=== PATIENT | female | born 1965 | race Caucasian/White ===

== ENCOUNTER → 2020-05-15 | Outpatient (CLI) | payer BC | END | disposition home or self-care (01) | LOC: LABWHC1 14:34 | PROVIDERS: ATTEND Family Medicine | DX: Z20.828 Contact with and (suspected) exposure to other viral communicable diseases (principal) | CPT/HCPCS: U0003; C9803 ==

== ENCOUNTER 2020-07-06 08:34 | Emergency (ER) | payer BC ==
[2020-07-06 08:41] VITALS: RESP 18
[2020-07-06] MEDS ORDERED: ALBUTEROL HFA INHALER INHALATION STA (08:57)
[2020-07-06] MEDS ORDERED: SODIUM CHLORIDE 0.9% 1,000 ML IV STA (08:58)
--- NOTE | 2020-07-06 09:01 | ED ---
General Adult HPI - General Chief complaint: Upper Respiratory Infection Stated complaint: cough/fatigue/fever Time Seen by Provider: 07/06/20 08:45 Source: patient, RN notes reviewed Mode of arrival: ambulatory Limitations: no limitations - History of Present Illness Initial comments: Patient is a pleasant 54-year-old female presenting to the emergency department with not feeling well for the past 10 days. Patient does have a lot of fatigue. Patient does have cough. No dyspnea. Patient has had fevers, none in the last 24 hours. Patient was exposed to Sanchez virus. No nausea vomiting. - Related Data Previous Rx's Medication Instructions Recorded Albuterol Sulfate [Albuterol 2 puff INHALATION Q6H PRN #1 07/06/20 Sulfate Hfa] inhaler Azithromycin [Zithromax Z-pack (6 250 mg PO DIRECTED #6 tab 07/06/20 tabs)] Allergies Allergy/AdvReac Type Severity Reaction Status Date / Time No Known Allergies Allergy Verified 07/06/20 08:36 Review of Systems ROS Statement: Those systems with pertinent positive or pertinent negative responses have been documented in the HPI. ROS Other: All systems not noted in ROS Statement are negative. Constitutional: Reports: as per HPI, fever, chills Eyes: Denies: eye pain ENT: Denies: ear pain Respiratory: Reports: cough. Denies: dyspnea Cardiovascular: Denies: chest pain Endocrine: Reports: fatigue Gastrointestinal: Denies: abdominal pain, nausea, vomiting Genitourinary: Denies: dysuria Musculoskeletal: Denies: back pain Skin: Denies: lesions Neurological: Denies: weakness Past Medical History Past Medical History: Thyroid Disorder History of Any Multi-Drug Resistant Organisms: None Reported Past Surgical History: Hernia Repair Past Psychological History: No Psychological Hx Reported Smoking Status: Never smoker Past Alcohol Use History: None Reported Past Drug Use History: None Reported General Exam Limitations: no limitations General appearance: alert, in no apparent distress Head exam: Present: normocephalic Eye exam: Present: normal appearance Neck exam: Present: normal inspection Respiratory exam: Present: normal lung sounds bilaterally Cardiovascular Exam: Present: regular rate, normal rhythm GI/Abdominal exam: Present: soft. Absent: tenderness Extremities exam: Present: normal inspection. Absent: pedal edema, calf tenderness Neurological exam: Present: alert Psychiatric exam: Present: normal affect, normal mood Skin exam: Present: normal color Course Vital Signs 07/06/20 07/06/20 08:36 08:50 Temperature 97.9 F Pulse Rate 97 Respiratory 18 18 Rate Blood Pressure 107/69 O2 Sat by Pulse 97 Oximetry EKG Findings - EKG Comments: EKG Findings:: Normal sinus rhythm 87. IA 1:30. QRS 84. QT 366. QTc 440. Normal axis. Normal QRS. No acute ST change. Medical Decision Making - Medical Decision Making Patient evaluated and resting comfortably in bed. Patient updated on results and need for follow-up. - Lab Data Result diagrams: 07/06/20 09:29 07/06/20 09:29 Lab Results 07/06/20 07/06/20 07/06/20 Range/Units 09:29 09:29 09:29 WBC 7.2 (3.8-10.6) k/uL RBC 4.84 (3.80-5.40) m/uL Hgb 14.4 (11.4-16.0) gm/dL Hct 41.5 (34.0-46.0) % MCV 85.6 (80.0-100.0) fL MCH 29.8 (25.0-35.0) pg MCHC 34.8 (31.0-37.0) g/dL RDW 12.5 (11.5-15.5) % Plt Count 248 (150-450) k/uL MPV 6.8 Neutrophils % 69 % Lymphocytes % 21 % Monocytes % 6 % Eosinophils % 1 % Basophils % 1 % Neutrophils # 4.9 (1.3-7.7) k/uL Lymphocytes # 1.5 (1.0-4.8) k/uL Monocytes # 0.4 (0-1.0) k/uL Eosinophils # 0.1 (0-0.7) k/uL Basophils # 0.1 (0-0.2) k/uL PT 9.3 (9.0-12.0) sec INR 0.9 (<1.2) APTT 24.1 (22.0-30.0) sec Sodium 139 (137-145) mmol/L Potassium 4.3 (3.5-5.1) mmol/L Chloride 108 H (98-107) mmol/L Carbon Dioxide 24 (22-30) mmol/L Anion Gap 7 mmol/L BUN 16 (7-17) mg/dL Creatinine 0.65 (0.52-1.04) mg/dL Est GFR (CKD-EPI)AfAm >90 (>60 ml/min/1.73 sqM) Est GFR (CKD-EPI)NonAf >90 (>60 ml/min/1.73 sqM) Glucose 98 (74-99) mg/dL Plasma Lactic Acid Norberto (0.7-2.0) mmol/L Calcium 8.9 (8.4-10.2) mg/dL Magnesium 2.4 H (1.6-2.3) mg/dL Total Bilirubin 0.4 (0.2-1.3) mg/dL AST 57 H (14-36) U/L ALT 40 H (4-34) U/L Alkaline Phosphatase 72 (38-126) U/L Lactate Dehydrogenase 756 H (313-618) U/L C-Reactive Protein 22.3 H (<10.0) mg/L Total Protein 6.9 (6.3-8.2) g/dL Albumin 3.8 (3.5-5.0) g/dL Coronavirus (PCR) (Not Detectd) 07/06/20 07/06/20 Range/Units 09:29 09:29 WBC (3.8-10.6) k/uL RBC (3.80-5.40) m/uL Hgb (11.4-16.0) gm/dL Hct (34.0-46.0) % MCV (80.0-100.0) fL MCH (25.0-35.0) pg MCHC (31.0-37.0) g/dL RDW (11.5-15.5) % Plt Count (150-450) k/uL MPV Neutrophils % % Lymphocytes % % Monocytes % % Eosinophils % % Basophils % % Neutrophils # (1.3-7.7) k/uL Lymphocytes # (1.0-4.8) k/uL Monocytes # (0-1.0) k/uL Eosinophils # (0-0.7) k/uL Basophils # (0-0.2) k/uL PT (9.0-12.0) sec INR (<1.2) APTT (22.0-30.0) sec Sodium (137-145) mmol/L Potassium (3.5-5.1) mmol/L Chloride (98-107) mmol/L Carbon Dioxide (22-30) mmol/L Anion Gap mmol/L BUN (7-17) mg/dL Creatinine (0.52-1.04) mg/dL Est GFR (CKD-EPI)AfAm (>60 ml/min/1.73 sqM) Est GFR (CKD-EPI)NonAf (>60 ml/min/1.73 sqM) Glucose (74-99) mg/dL Plasma Lactic Acid Norberto 1.0 (0.7-2.0) mmol/L Calcium (8.4-10.2) mg/dL Magnesium (1.6-2.3) mg/dL Total Bilirubin (0.2-1.3) mg/dL AST (14-36) U/L ALT (4-34) U/L Alkaline Phosphatase (38-126) U/L Lactate Dehydrogenase (313-618) U/L C-Reactive Protein (<10.0) mg/L Total Protein (6.3-8.2) g/dL Albumin (3.5-5.0) g/dL Coronavirus (PCR) Detected A (Not Detectd) - Radiology Data Radiology results: image reviewed (Chest x-ray shows mild interstitial changes, cannot rule out early infiltrate) Disposition Clinical Impression: COVID-19, Cough Disposition: HOME SELF-CARE Condition: Stable Instructions (If sedation given, give patient instructions): Community Acquired Pneumonia (ED), Viral Pneumonia (ED), Upper Respiratory Infection (ED) Additional Instructions: Please follow-up with primary care physician in the next couple of days for recheck. Return for difficulty breathing, not tolerating fluids, uncontrolled fevers, worsening symptoms or other concerns. [id number] vitamin C, vitamin D and zinc. Prescription for antibiotic and an extra inhaler has been sent to [facility] pharmacy. Continue [id number] Tylenol as needed. Prescriptions: Albuterol Sulfate [Albuterol Sulfate Hfa] 2 puff INHALATION Q6H PRN #1 inhaler PRN Reason: Shortness Of Breath Azithromycin [Zithromax Z-pack (6 tabs)] 250 mg PO DIRECTED #6 tab Is patient prescribed a controlled substance at d/c from ED?: No Referrals: Neyr Whitehead MD [Primary Care Provider] - 1-2 days Time of Disposition: 10:06
[2020-07-06 09:37] LABS: Basophils # (A) 0.1 k/uL (0-0.2); Basophils % (A) 1 %; Eosinophils # (A) 0.1 k/uL (0-0.7); Eosinophils % (A) 1 %; HCT 41.5 % (34.0-46.0); HGB 14.4 gm/dL (11.4-16.0); Lymphocytes # (A) 1.5 k/uL (1.0-4.8); Lymphocytes % (A) 21 %; MCH 29.8 pg (25.0-35.0); MCHC 34.8 g/dL (31.0-37.0); MCV 85.6 fL (80.0-100.0); Mean Platelet Volume 6.8; Monocytes # (A) 0.4 k/uL (0-1.0); Monocytes % (A) 6 %; Neutrophils # (A) 4.9 k/uL (1.3-7.7); Neutrophils % (A) 69 %; Platelet Count 248 k/uL (150-450); RBC 4.84 m/uL (3.80-5.40); RDW 12.5 % (11.5-15.5); WBC 7.2 k/uL (3.8-10.6)
[2020-07-06 09:49] LABS: ALT 40 U/L (4-34); AST 57 U/L (14-36); African American GFR (CKD) >90 (>60 ml/min/1.73 sqM); Albumin 3.8 g/dL (3.5-5.0); Alkaline Phosphatase 72 U/L (38-126); Anion Gap 7 mmol/L; Blood Urea Nitrogen 16 mg/dL (7-17); C Reactive Protein 22.3 mg/L (<10.0); Calcium 8.9 mg/dL (8.4-10.2); Carbon Dioxide 24 mmol/L (22-30); Chloride 108 mmol/L (98-107); Glucose 98 mg/dL (74-99); LDH 756 U/L (313-618); Magnesium 2.4 mg/dL (1.6-2.3); Non-African American GFR(CKD) >90 (>60 ml/min/1.73 sqM); Potassium 4.3 mmol/L (3.5-5.1); Sodium 139 mmol/L (137-145); Total Bilirubin 0.4 mg/dL (0.2-1.3); Total Protein 6.9 g/dL (6.3-8.2)
--- NOTE | 2020-07-06 09:50 | XR ---
EXAMINATION TYPE: XR chest 1V portable DATE OF EXAM: 07/06/2020 HISTORY: Shortness of breath. COMPARISON: None. TECHNIQUE: Single view of the chest is submitted. FINDINGS: Demonstrated are scattered senescent parenchymal change. Vague basilar infiltrates are suggested. Correlate for developing pneumonia. The heart is stable. Hilar and mediastinal structures are within normal limits. Degenerative changes are seen of the dorsal spine. IMPRESSION: 1. Vague basilar infiltrates are suggested. Correlate for developing pneumonia.
[2020-07-06 09:52] LABS: INR 0.9 (<1.2); Partial Thromboplastin Time 24.1 sec (22.0-30.0); Prothrombin Time 9.3 sec (9.0-12.0)
[2020-07-06 10:25] VITALS: BP 116/70; PULSE 84; TEMP 98
== END 2020-07-06 10:27 | disposition home or self-care (01) ==
LOC: EC 08:34
DX: U07.1 COVID-19 (principal)
CPT/HCPCS: 36415; 71045; 80053; 82728; 83605; 83615; 83735; 84145; 85025; 85610; 85730; 86140; 87040; 87635; 93005; 96360; 99284

== ENCOUNTER → 2022-05-19 | Outpatient (CLI) | payer BC ==
[2022-05-20 01:16] LABS: Gliadin AB IgA, Deaminated NEGATIVE (NEGATIVE); Gliadin AB IgA, Unit 1.5 U/mL; Gliadin AB IgG, Deaminated NEGATIVE (NEGATIVE); Gliadin AB IgG, Unit <0.4 U/mL
== END | disposition home or self-care (01) ==
LOC: LABWHC1 13:22
PROVIDERS: ATTEND Allergy & Immunology
DX: K59.00 Constipation, unspecified (principal)
CPT/HCPCS: 36415; 82784; 83516; 86255

== ENCOUNTER → 2022-06-14 | Outpatient (CLI) | payer BC ==
[2022-06-15 10:59] LABS: Chocolate IgE Class CLASS 0
== END | disposition home or self-care (01) ==
LOC: LABWHC1 09:51
PROVIDERS: ATTEND Allergy & Immunology
DX: Z91.018 Allergy to other foods (principal); K59.00 Constipation, unspecified; J30.89 Other allergic rhinitis
CPT/HCPCS: 36415; 86003